=== PATIENT | female | born 1955 | race Caucasian/White ===

== ENCOUNTER 2018-02-10 04:39 | Inpatient (IN) | payer MEDICARE ==
[~2018-02-10] VITALS: Ht 162.6 cm; Wt 85.5 kg
[2018-02-10 13:17] VITALS: BP 133/75
[2018-02-10] MEDS ORDERED: METHYL SALICYLATE/MENTHOL TOPICAL OINTMENT 29GM TUBE. TP PRN (13:45)
[2018-02-10] MEDS ORDERED: MAGNESIUM HYDROXIDE 2,400 MG/30 ML ORAL.SUSP. PO PRN (13:45)
[2018-02-10] MEDS ORDERED: MAG HYDROX/AL HYDROX/SIMETH 30 ML ORAL.SUSP PO PRN (13:45)
[2018-02-10] MEDS ORDERED: CARV25TA2 PO (14:13)
[2018-02-10] MEDS ORDERED: NITR0.4T22 SL (14:13)
[2018-02-10] MEDS ORDERED: LEVE500T6 PO (14:13)
[2018-02-10] MEDS ORDERED: FAMO20TA5 PO (14:13)
[2018-02-10] MEDS ORDERED: ATORVASTATIN CA80 MG PO (14:13)
[2018-02-10] MEDS ORDERED: ZOLP5TAB PO (14:13)
[2018-02-10] MEDS ORDERED: AMLO10TA6 PO (14:13)
[2018-02-10] MEDS ORDERED: SENN1TAB72 PO (14:13)
[2018-02-10] MEDS ORDERED: ISOS60TA2 PO (14:13)
[2018-02-10] MEDS ORDERED: FURO20TA3 PO (14:13)
[2018-02-10] MEDS ORDERED: FLUO40CA9 PO (14:13)
[2018-02-10] MEDS ORDERED: EZET10TA18 PO (14:13)
[2018-02-10] MEDS ORDERED: MELA3TAB2 PO (14:13)
[2018-02-10] MEDS ORDERED: CLOP75TA PO (14:13)
[2018-02-10] MEDS ORDERED: PANT40TA5 PO (14:13)
[2018-02-10] MEDS ORDERED: ALPR1TAB6 PO (14:13)
[2018-02-10] MEDS ORDERED: RANO10002 PO (14:13)
[2018-02-10] MEDS ORDERED: DOCU100C28 PO (14:13)
[2018-02-10] MEDS ORDERED: ASPI-630 PO (14:13)
[2018-02-10] MEDS ORDERED: FURO40TA4 PO (14:13)
[2018-02-10] MEDS ORDERED: SENNOSIDES/DOCUSATE 8.6/50MG TABLET. PO PRN (14:30)
[2018-02-10] MEDS ORDERED: NITROGLYCERIN SUBLINGUAL 0.4 MG BOTTLE OF 25. SL PRN (14:30)
[2018-02-10 16:01] VITALS: BP 146/84
[2018-02-10] MEDS ORDERED: ALPRAZolam 0.5 MG TABLET PO PRN (16:55)
[2018-02-10] MEDS: CARVEDILOL 12.5 MG TABLET PO SCH (17:21)
[2018-02-10] MEDS ORDERED: NON FORMULARY ITEM (Melatonin 20 MG) PO SCH (21:00)
[2018-02-10] MEDS: RANOLAZINE 500 MG TAB.ER.12H PO SCH ×2 (21:00→21:16)
[2018-02-10] MEDS: levETIRAcetam 500 MG TABLET PO SCH (21:07)
[2018-02-10] MEDS: DOCUSATE SODIUM 100 MG CAPSULE PO SCH (21:07)
[2018-02-10] MEDS: ZOLPIDEM 5 MG TABLET. PO PRN (21:11)
--- NOTE | 2018-02-10 22:58 | PDOC ---
Exam Note: Allan Note: Please also refer to the separate dictated note~for this date of service dictated separately. Discussed the patient with Nursing staff reviewed the chart.~Reviewed interim history and current functioning. Reviewed vital signs,~ Labs/ Radiology~and current medications noted below. Continue current treatment with the changes noted in the dictated addendum note Assessment: Vital Signs: Vital Signs Date Time Temp Pulse Resp B/P (MAP) Pulse Ox O2 Delivery O2 Flow Rate FiO2 02/10/18 21:16 73 146/84 02/10/18 16:01 98.4 16 97 Room Air Labs: Laboratory Tests Test 02/10/18 13:55 Magnesium Level 2.2 mg/dL (1.8-2.4) Current Medications: Meds: Current Medications Acetaminophen (Tylenol) 650 mg PRN Q6HRS PRN PO PAIN / TEMP; Start 02/10/18 at 13:45 Multi-Ingredient Ointment (Analgesic [place]) 1 sha PRN QID PRN TP MUSCLE PAIN; Start 02/10/18 at 13:45 Al Hydroxide/Mg Hydroxide (Mylanta Plus Xs) 15 ml PRN AFTMEALHC PRN PO DYSPEPSIA; Start 02/10/18 at 13:45 Magnesium Hydroxide (Milk Of Magnesia) 2,400 mg PRN QHS PRN PO CONSTIPATION; Start 02/10/18 at 13:45 Clopidogrel Bisulfate (Plavix) 75 mg DAILY PO ; Start 02/11/18 at 09:00 Furosemide (Lasix) 20 mg PRN QEVNG PRN PO edema; Start 02/10/18 at 14:30 Nitroglycerin (Nitrostat) 0.4 mg PRN Q5MIN PRN SL CHEST PAIN; Start 02/10/18 at 14:30 Senna/Docusate Sodium (Senna Plus) 1 tab PRN DAILY PRN PO stool softener ; Start 02/10/18 at 14:30 Zolpidem Tartrate (Ambien) 5 mg PRN QHS PRN PO insomnia Last administered on at 21:11; Start 02/10/18 at 14:30 Alprazolam (Xanax) 1.5 mg PRN QHS PRN PO for sleep ; Start 02/10/18 at 14:30 Amlodipine Besylate (Norvasc) 10 mg DAILY PO ; Start 02/11/18 at 09:00 Aspirin (Children'S Aspirin) 81 mg DAILYWBKFT PO ; Start 02/11/18 at 08:00 Atorvastatin Calcium (Lipitor) 80 mg DAILY PO ; Start 02/11/18 at 09:00 Carvedilol (Coreg) 25 mg BIDWMEALS PO Last administered on 02/10/18at 17:21; Start 02/10/18 at 17:00 Docusate Sodium (Colace) 100 mg BID PO Last administered on 02/10/18at 21:07; Start 02/10/18 at 21:00 EZETIMIBE (Zetia) 10 mg DAILY PO ; Start 02/11/18 at 09:00 Famotidine (Pepcid) 20 mg DAILY PO ; Start 02/11/18 at 09:00 Fluoxetine HCl (PROzac) 40 mg DAILY PO ; Start 02/11/18 at 09:00; Stop 02/11/18 at 09:00; Status DC Furosemide (Lasix) 40 mg DAILY PO ; Start 02/11/18 at 09:00 Isosorbide Mononitrate (Imdur) 60 mg DAILY PO ; Start 02/11/18 at 09:00 Levetiracetam (Keppra) 500 mg BID PO Last administered on 02/10/18at 21:07; Start 02/10/18 at 21:00 Non-Formulary Medication (Melatonin ) 20 mg QHS PO ; Start 02/10/18 at 21:00; Stop 02/10/18 at 21:00; Status DC Pantoprazole Sodium (Protonix) 40 mg DAILYAC PO ; Start 02/11/18 at 07:30 Ranolazine (Ranexa) 1,000 mg BID PO Last administered on 02/10/18at 21:16; Start 02/10/18 at 21:00 Alprazolam (Xanax) 0.5 mg PRN Q2HR PRN PO ANXIETY / AGITATION Last administered on 02/10/18at 16:58; Start 02/10/18 at 16:55 Duloxetine HCl (Cymbalta) 30 mg DAILY PO ; Start 02/11/18 at 09:00 Trazodone HCl (Desyrel) 50 mg PRN QHS PRN PO insomnia ; Start 02/10/18 at 20:00 Active Scripts Active Reported Ambien (Zolpidem Tartrate) 5 Mg Tablet 5 Mg PO PRN QHS PRN Ranexa (Ranolazine) 1,000 Mg Tab.er.12h 1,000 Mg PO BID Pantoprazole Sodium 40 Mg Tablet.dr 40 Mg PO DAILY NITROGLYCERIN SubLingual (Nitroglycerin) 0.4 Mg Tab.subl 0.4 Mg SL PRN Q5MIN PRN Stool Softener Tablet (Sennosides/Docusate Sodium) 1 Each Tablet 1 Each PO PRN DAILY PRN Melatonin 3 Mg Tablet 20 Mg PO QHS Levetiracetam 500 Mg Tablet 500 Mg PO BID Isosorbide Mononitrate Er (Isosorbide Mononitrate) 60 Mg Tab.er.24h 60 Mg PO DAILY Furosemide 20 Mg Tablet 20 Mg PO PRN QEVNG PRN Furosemide 40 Mg Tablet 40 Mg PO DAILY Prozac (Fluoxetine Hcl) 40 Mg Capsule 40 Mg PO DAILY Famotidine 20 Mg Tablet 20 Mg PO DAILY Zetia (Ezetimibe) 10 Mg Tablet 10 Mg PO DAILY Docusate Sodium 100 Mg Capsule 100 Mg PO BID Clopidogrel (Clopidogrel Bisulfate) 75 Mg Tablet 75 Mg PO DAILY PRN Carvedilol 25 Mg Tablet 25 Mg PO BIDWMEALS Atorvastatin Calcium 80 Mg Tablet 80 Mg PO DAILY Aspirin 81 Mg Tab.chew 81 Mg PO DAILY Amlodipine Besylate 10 Mg Tablet 10 Mg PO DAILY Alprazolam 1 Mg Tablet 1.5 Mg PO PRN QHS PRN I have reviewed the current psychotropics carefully including drug interactions. Risk benefit ratio favors no change other than as noted in my dictated progress note. Diagnosis: Problems: (1) Altered mental status, unspecified MARIA ESTHER FREEDMAN MD Feb 10, 2018 22:58
[2018-02-10] MEDS: ALPRAZolam 0.5 MG TABLET PO PRN (23:06)
[2018-02-11 00:07] LABS: THYROXINE 10.3 ug/dL (4.5-12.0)
[2018-02-11 02:18] LABS: HEMOGLOBIN A1C 5.3 % (4.8-5.6)
[2018-02-11 05:38] VITALS: BP 144/64
[2018-02-11 07:07] LABS: BASO # 0.1 x10^3/uL (0.0-0.2); BASO % 1 % (0-3); EOS # 0.3 x10^3/uL (0.0-0.7); EOS % 5 % (0-3); HEMATOCRIT 31.9 % (36.0-47.0); HEMOGLOBIN 10.3 g/dL (12.0-15.5); LYMPH # 2.5 x10^3/uL (1.0-4.8); LYMPH % 40 % (24-48); MEAN CORPUSCULAR HEMOGLOBIN 26 pg (25-35); MEAN CORPUSCULAR HGB CONC 32 g/dL (31-37); MEAN CORPUSCULAR VOLUME 80 fL (79-100); MONO # 0.6 x10^3/uL (0.0-1.1); MONO % 10 % (0-9); NEUT # 2.8 x10^3uL (1.8-7.7); NEUT % 44 % (31-73); PLATELET COUNT 290 x10^3/uL (140-400); RED BLOOD COUNT 3.99 x10^6/uL (3.50-5.40); RED CELL DISTRIBUTION WIDTH 17.3 % (11.5-14.5); WHITE BLOOD COUNT 6.3 x10^3/uL (4.0-11.0)
[2018-02-11 07:14] LABS: ALBUMIN/GLOBULIN RATIO 0.9 (1.0-1.7); CALCIUM 8.6 mg/dL (8.5-10.1); CREATININE 1.2 mg/dL (0.6-1.0); GFR 45.1; POTASSIUM 3.9 mmol/L (3.5-5.1); TOTAL BILIRUBIN 0.4 mg/dL (0.2-1.0); TOTAL PROTEIN 6.4 g/dL (6.4-8.2)
[2018-02-11] MEDS ORDERED: FLUoxetine HCL 20 MG CAPSULE PO SCH (09:00)
[2018-02-11] MEDS: DOCUSATE SODIUM 100 MG CAPSULE PO SCH ×2 (09:07→19:25)
[2018-02-11] MEDS: levETIRAcetam 500 MG TABLET PO SCH ×2 (09:07→19:24)
[2018-02-11] MEDS: PANTOPRAZOLE 40 MG TABLET. PO SCH (09:14)
[2018-02-11] MEDS: ASPIRIN 81 MG TAB.CHEW PO SCH (09:14)
[2018-02-11] MEDS: DULoxetine HCL 30 MG CAPSULE.DR PO SCH (09:15)
[2018-02-11] MEDS: CARVEDILOL 12.5 MG TABLET PO SCH ×2 (09:15→17:08)
[2018-02-11] MEDS: CLOPIDOGREL BISULFATE 75 MG TABLET PO SCH (09:17)
[2018-02-11] MEDS: ISOSORBIDE MONONITRATE ER 30 MG TAB.ER.24H PO SCH (09:17)
[2018-02-11] MEDS: FAMOTIDINE 20 MG TABLET PO SCH (09:17)
[2018-02-11] MEDS: RANOLAZINE 500 MG TAB.ER.12H PO SCH ×2 (09:18→19:24)
[2018-02-11] MEDS: ATORVASTATIN CALCIUM 20 MG TABLET PO SCH (09:18)
[2018-02-11] MEDS: EZETIMIBE 10 MG TABLET PO SCH (09:18)
[2018-02-11] MEDS: FUROSEMIDE 40 MG TABLET PO SCH (09:18)
[2018-02-11] MEDS: amLODIPine BESYLATE 10 MG TABLET PO SCH (09:19)
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
[2018-02-11 16:51] VITALS: BP 126/79
--- NOTE | 2018-02-11 18:57 | CONS ---
DATE OF CONSULTATION: 02/11/2018 REASON FOR CONSULTATION: Medical management. HISTORY OF PRESENT ILLNESS: The patient is a 63-year-old female patient, who was [facility] Room where she presented from home on account of worsening symptoms of depression with suicidal ideation with a plan to take pills or use carbon monoxide poisoning to kill herself. The patient has been living at home, caring for her elderly mother, this has been increasingly frustrating for her worsening symptoms of depression. She was admitted to this unit for psychiatric stabilization. PAST MEDICAL HISTORY: Significant for numerous medical problems including congestive heart failure, coronary artery disease, peripheral artery disease, hypertension, diabetes, seizures, migraine, panic attack, CVA, chronic kidney disease, hyperlipidemia, and renal arterial atherosclerosis. PAST SURGICAL HISTORY: Significant for coronary artery bypass graft surgery as well as stent deployment. She has also right ankle fracture, status post open reduction and internal fixation. ALLERGIES: She has no known drug allergies. MEDICATIONS: She is currently on following medications: She is on Plavix 75 mg once a day, Ranexa 1000 mg twice a day, Zetia 10 mg once a day, atorvastatin calcium 80 mg at bedtime. She is on isosorbide mononitrate 60 mg once a day, nitroglycerin 0.4 mg sublingual every 5 minutes x 3, carvedilol 25 mg twice a day, amlodipine besylate 10 mg once a day, aspirin 81 mg once a day, Keppra 500 mg twice a day, fluoxetine for Prozac 40 mg daily, alprazolam 1.5 mg at bedtime and Ambien 5 mg at bedtime, furosemide 40 mg daily and furosemide 20 mg as needed in the evening for worsening edema, docusate sodium 100 mg twice a day, Senna-S 1 tablet daily p.r.n. for constipation, famotidine 20 mg once a day, Protonix 40 mg once a day, and melatonin 20 mg at bedtime. FAMILY HISTORY: Noncontributory. SOCIAL HISTORY: The patient lives at home, caring for mother. She does not smoke, drink alcohol or use recreational drugs. She is retired at age of 48 after she had sustained a cerebrovascular accident. PHYSICAL EXAMINATION: GENERAL: When I examined her, the patient looked well and was clearly in no apparent respiratory distress. Slightly pale, but no jaundice, cyanosis, or thyromegaly. No jugular venous distension. No limb edema. VITAL SIGNS: Her heart rate was 64, blood pressure was 144/64, temperature was 97.9, respiratory rate was 18 and oxygen saturation was 96% on room air. HEAD, EYES, EARS, NOSE AND THROAT: Showed normocephalic, atraumatic. NECK: Supple. HEART: Showed normal first and second heart sounds. No gallop, rub or murmur. CHEST: Clear to auscultation. No crepitation or rhonchi. ABDOMEN: Distended, soft, nontender. No guarding or rigidity. No organomegaly. Hernial orifice intact. Bowel sounds normal. NEUROLOGIC: She was awake, alert, responding appropriately. All cranial nerves intact. EXTREMITIES: She moves all extremities without difficulty. She ambulates without assistance or assistive devices. Her intake over the last 24 hours was incompletely recorded. LABORATORY DATA: Her lab work showed a serum sodium 141, potassium 3.9, chloride 104, bicarbonate 28, anion gap of 9, BUN 17, creatinine 1.2, estimated GFR was 45 mL per minute. Her glucose 96, calcium was 8.6. Her total bilirubin, AST, ALT, and alkaline phosphatase were normal. Total protein is 6.4, albumin 3. Her total T4 and total T3 are all normal. Her white cell count was 6300, hemoglobin 10, hematocrit 31, MCV 80 and platelet count 290,000. IMPRESSION: In summary, this is a 63-year-old female patient who was admitted with severe depression, suicidal ideation with a plan to take pills or use carbon monoxide to kill herself and she is here for inpatient psychiatric stabilization. Medically, she has a multitude of medical problems including type 2 diabetes, hypertension, hyperlipidemia, chronic kidney disease, cerebrovascular accident, coronary artery disease, peripheral arterial disease, congestive heart failure. Her vital signs and lab works are all within acceptable range. She is all in all medically stable. I will definitely continue with all her medications for the time being. I will follow all the lab works that are still pending and make any necessary recommendation. Thank you, Dr. Tejeda for allowing me to participate in the care of this patient. BRIANNA SILVER MD DR: CYNTHIA/amie JOB#: [id number] / [id number]
[2018-02-11] MEDS: ALPRAZolam 0.5 MG TABLET PO PRN (19:24)
[2018-02-11] MEDS: ZOLPIDEM 5 MG TABLET. PO PRN (19:24)
[2018-02-11 19:49] LABS: THYROID STIM HORMONE (TSH) 1.669 uIU/mL (0.358-3.740)
[2018-02-11] MEDS: traZODone 50 MG TABLET. PO PRN (21:36)
--- NOTE | 2018-02-11 22:42 | PDOC ---
Exam Note: Allan Note: Please also refer to the separate dictated note~for this date of service dictated separately.~Patient seen individually. Discussed the patient with Nursing staff reviewed the chart.~Reviewed interim history and current functioning. Reviewed vital signs,~Labs/ Radiology~and current medications noted below. Continue current treatment with the changes noted in the dictated addendum note Assessment: Vital Signs: Vital Signs Date Time Temp Pulse Resp B/P (MAP) Pulse Ox O2 Delivery O2 Flow Rate FiO2 02/11/18 19:24 80 126/79 02/11/18 16:51 98.5 17 96 02/10/18 16:01 Room Air I&O Intake and Output 02/11/18 07:01 Intake Total 360 ml Balance 360 ml Intake Oral 360 ml Labs: Laboratory Tests Test 02/11/18 06:40 02/11/18 07:17 White Blood Count 6.3 x10^3/uL (4.0-11.0) Red Blood Count 3.99 x10^6/uL (3.50-5.40) Hemoglobin 10.3 g/dL (12.0-15.5) L Hematocrit 31.9 % (36.0-47.0) L Mean Corpuscular Volume 80 fL (79-100) Mean Corpuscular Hemoglobin 26 pg (25-35) Mean Corpuscular Hemoglobin Concent 32 g/dL (31-37) Red Cell Distribution Width 17.3 % (11.5-14.5) H Platelet Count 290 x10^3/uL (140-400) Neutrophils (%) (Auto) 44 % (31-73) Lymphocytes (%) (Auto) 40 % (24-48) Monocytes (%) (Auto) 10 % (0-9) H Eosinophils (%) (Auto) 5 % (0-3) H Basophils (%) (Auto) 1 % (0-3) Neutrophils # (Auto) 2.8 x10^3uL (1.8-7.7) Lymphocytes # (Auto) 2.5 x10^3/uL (1.0-4.8) Monocytes # (Auto) 0.6 x10^3/uL (0.0-1.1) Eosinophils # (Auto) 0.3 x10^3/uL (0.0-0.7) Basophils # (Auto) 0.1 x10^3/uL (0.0-0.2) Sodium Level 141 mmol/L (136-145) Potassium Level 3.9 mmol/L (3.5-5.1) Chloride Level 104 mmol/L (98-107) Carbon Dioxide Level 28 mmol/L (21-32) Anion Gap 9 (6-14) Blood Urea Nitrogen 17 mg/dL (7-20) Creatinine 1.2 mg/dL (0.6-1.0) H Estimated GFR (Cockcroft-Gault) 45.1 BUN/Creatinine Ratio 14 (6-20) Glucose Level 96 mg/dL (70-99) Calcium Level 8.6 mg/dL (8.5-10.1) Total Bilirubin 0.4 mg/dL (0.2-1.0) Aspartate Amino Transferase (AST) 34 U/L (15-37) Alanine Aminotransferase (ALT) 40 U/L (14-59) Alkaline Phosphatase 109 U/L (46-116) Total Protein 6.4 g/dL (6.4-8.2) Albumin 3.0 g/dL (3.4-5.0) L Albumin/Globulin Ratio 0.9 (1.0-1.7) L Glucose (Fingerstick) 95 mg/dL (70-99) Current Medications: Meds: Current Medications Acetaminophen (Tylenol) 650 mg PRN Q6HRS PRN PO PAIN / TEMP; Start 02/10/18 at 13:45 Multi-Ingredient Ointment (Analgesic [place]) 1 sha PRN QID PRN TP MUSCLE PAIN; Start 02/10/18 at 13:45 Al Hydroxide/Mg Hydroxide (Mylanta Plus Xs) 15 ml PRN AFTMEALHC PRN PO DYSPEPSIA; Start 02/10/18 at 13:45 Magnesium Hydroxide (Milk Of Magnesia) 2,400 mg PRN QHS PRN PO CONSTIPATION; Start 02/10/18 at 13:45 Clopidogrel Bisulfate (Plavix) 75 mg DAILY PO Last administered on 02/11/18at 09: 17; Start 02/11/18 at 09:00 Furosemide (Lasix) 20 mg PRN QEVNG PRN PO edema; Start 02/10/18 at 14:30 Nitroglycerin (Nitrostat) 0.4 mg PRN Q5MIN PRN SL CHEST PAIN; Start 02/10/18 at 14:30 Senna/Docusate Sodium (Senna Plus) 1 tab PRN DAILY PRN PO stool softener ; Start 02/10/18 at 14:30 Zolpidem Tartrate (Ambien) 5 mg PRN QHS PRN PO insomnia Last administered on 19:24; Start 02/10/18 at 14:30 Alprazolam (Xanax) 1.5 mg PRN QHS PRN PO for sleep Last administered on 19:24; Start 02/10/18 at 14:30 Amlodipine Besylate (Norvasc) 10 mg DAILY PO Last administered on 02/11/18 09: 19; Start 02/11/18 at 09:00 Aspirin (Children'S Aspirin) 81 mg DAILYWBKFT PO Last administered on 02/11/18 09:14; Start 02/11/18 at 08:00 Atorvastatin Calcium (Lipitor) 80 mg DAILY PO Last administered on 02/11/18 09: 18; Start 02/11/18 at 09:00 Carvedilol (Coreg) 25 mg BIDWMEALS PO Last administered on 02/11/18 17:08; Start 02/10/18 at 17:00 Docusate Sodium (Colace) 100 mg BID PO Last administered on 02/11/18 19:25; Start 02/10/18 at 21:00 EZETIMIBE (Zetia) 10 mg DAILY PO Last administered on 02/11/18 09:18; Start 02/11/18 at 09:00 Famotidine (Pepcid) 20 mg DAILY PO Last administered on 02/11/18 09:17; Start 02/11/18 at 09:00 Fluoxetine HCl (PROzac) 40 mg DAILY PO ; Start 02/11/18 at 09:00; Stop 02/11/18 at 09:00; Status DC Furosemide (Lasix) 40 mg DAILY PO Last administered on 02/11/18 09:18; Start at 09:00 Isosorbide Mononitrate (Imdur) 60 mg DAILY PO Last administered on 02/11/18 09: 17; Start 02/11/18 at 09:00 Levetiracetam (Keppra) 500 mg BID PO Last administered on 02/11/18 19:24; Start 02/10/18 at 21:00 Non-Formulary Medication (Melatonin ) 20 mg QHS PO ; Start 02/10/18 at 21:00; Stop 02/10/18 at 21:00; Status DC Pantoprazole Sodium (Protonix) 40 mg DAILYAC PO Last administered on 02/11/18at 09:14; Start 02/11/18 at 07:30 Ranolazine (Ranexa) 1,000 mg BID PO Last administered on 02/11/18at 19:24; Start 02/10/18 at 21:00 Alprazolam (Xanax) 0.5 mg PRN Q2HR PRN PO ANXIETY / AGITATION Last administered on 02/10/18at 16:58; Start 02/10/18 at 16:55 Duloxetine HCl (Cymbalta) 30 mg DAILY PO Last administered on 02/11/18at 09:15; Start 02/11/18 at 09:00 Trazodone HCl (Desyrel) 50 mg PRN QHS PRN PO insomnia Last administered on 02/11at 21:36; Start 02/10/18 at 20:00 Active Scripts Active Reported Ambien (Zolpidem Tartrate) 5 Mg Tablet 5 Mg PO PRN QHS PRN Ranexa (Ranolazine) 1,000 Mg Tab.er.12h 1,000 Mg PO BID Pantoprazole Sodium 40 Mg Tablet.dr 40 Mg PO DAILY NITROGLYCERIN SubLingual (Nitroglycerin) 0.4 Mg Tab.subl 0.4 Mg SL PRN Q5MIN PRN Stool Softener Tablet (Sennosides/Docusate Sodium) 1 Each Tablet 1 Each PO PRN DAILY PRN Melatonin 3 Mg Tablet 20 Mg PO QHS Levetiracetam 500 Mg Tablet 500 Mg PO BID Isosorbide Mononitrate Er (Isosorbide Mononitrate) 60 Mg Tab.er.24h 60 Mg PO DAILY Furosemide 20 Mg Tablet 20 Mg PO PRN QEVNG PRN Furosemide 40 Mg Tablet 40 Mg PO DAILY Prozac (Fluoxetine Hcl) 40 Mg Capsule 40 Mg PO DAILY Famotidine 20 Mg Tablet 20 Mg PO DAILY Zetia (Ezetimibe) 10 Mg Tablet 10 Mg PO DAILY Docusate Sodium 100 Mg Capsule 100 Mg PO BID Clopidogrel (Clopidogrel Bisulfate) 75 Mg Tablet 75 Mg PO DAILY PRN Carvedilol 25 Mg Tablet 25 Mg PO BIDWMEALS Atorvastatin Calcium 80 Mg Tablet 80 Mg PO DAILY Aspirin 81 Mg Tab.chew 81 Mg PO DAILY Amlodipine Besylate 10 Mg Tablet 10 Mg PO DAILY Alprazolam 1 Mg Tablet 1.5 Mg PO PRN QHS PRN I have reviewed the current psychotropics carefully including drug interactions. Risk benefit ratio favors no change other than as noted in my dictated progress note. Diagnosis: Problems: (1) Altered mental status, unspecified MARIA ESTHER FREEDMAN MD Feb 11, 2018 22:42
[2018-02-12 05:43] VITALS: BP 101/60
[2018-02-12] MEDS: FUROSEMIDE 40 MG TABLET PO SCH (07:59)
[2018-02-12] MEDS: levETIRAcetam 500 MG TABLET PO SCH ×2 (08:00→19:37)
[2018-02-12] MEDS: ASPIRIN 81 MG TAB.CHEW PO SCH (08:00)
[2018-02-12] MEDS: ATORVASTATIN CALCIUM 20 MG TABLET PO SCH (08:00)
[2018-02-12] MEDS: EZETIMIBE 10 MG TABLET PO SCH (08:00)
[2018-02-12] MEDS: CARVEDILOL 12.5 MG TABLET PO SCH ×2 (08:00→17:16)
[2018-02-12] MEDS: CLOPIDOGREL BISULFATE 75 MG TABLET PO SCH (08:00)
[2018-02-12] MEDS: RANOLAZINE 500 MG TAB.ER.12H PO SCH ×2 (08:01→19:39)
[2018-02-12] MEDS: PANTOPRAZOLE 40 MG TABLET. PO SCH (08:01)
[2018-02-12] MEDS: FAMOTIDINE 20 MG TABLET PO SCH (08:01)
[2018-02-12] MEDS: DULoxetine HCL 30 MG CAPSULE.DR PO SCH (08:01)
[2018-02-12] MEDS: DOCUSATE SODIUM 100 MG CAPSULE PO SCH ×2 (08:01→19:37)
[2018-02-12] MEDS: ISOSORBIDE MONONITRATE ER 30 MG TAB.ER.24H PO SCH (08:02)
[2018-02-12] MEDS: amLODIPine BESYLATE 10 MG TABLET PO SCH (08:02)
[2018-02-12 16:17] VITALS: BP 133/61
[2018-02-12] MEDS ORDERED: FUROSEMIDE 20 MG TABLET PO PRN (18:15)
[2018-02-12] MEDS: FUROSEMIDE 20 MG TABLET PO PRN (18:31)
[2018-02-12] MEDS: ALPRAZolam 0.5 MG TABLET PO PRN (19:39)
[2018-02-12] MEDS: ZOLPIDEM 5 MG TABLET. PO PRN (19:39)
--- NOTE | 2018-02-12 21:04 | PDOC ---
Exam Note: Allan Note: Please also refer to the separate dictated note~for this date of service dictated separately.~Patient seen individually. Discussed the patient with Nursing staff reviewed the chart.~Reviewed interim history and current functioning. Reviewed vital signs,~Labs/ Radiology~and current medications noted below. Continue current treatment with the changes noted in the dictated addendum note Assessment: Vital Signs: Vital Signs Date Time Temp Pulse Resp B/P (MAP) Pulse Ox O2 Delivery O2 Flow Rate FiO2 02/12/18 19:39 71 133/61 02/12/18 16:17 97.6 18 97 Room Air I&O Intake and Output 02/12/18 07:01 Intake Total 1560 ml Balance 1560 ml Intake Oral 1560 ml Labs: Laboratory Tests Test 02/12/18 07:51 Glucose (Fingerstick) 88 mg/dL (70-99) Current Medications: Meds: Current Medications Acetaminophen (Tylenol) 650 mg PRN Q6HRS PRN PO PAIN / TEMP; Start 02/10/18 at 13:45 Multi-Ingredient Ointment (Analgesic [place]) 1 sha PRN QID PRN TP MUSCLE PAIN; Start 02/10/18 at 13:45 Al Hydroxide/Mg Hydroxide (Mylanta Plus Xs) 15 ml PRN AFTMEALHC PRN PO DYSPEPSIA; Start 02/10/18 at 13:45 Magnesium Hydroxide (Milk Of Magnesia) 2,400 mg PRN QHS PRN PO CONSTIPATION; Start 02/10/18 at 13:45 Clopidogrel Bisulfate (Plavix) 75 mg DAILY PO Last administered on 02/12/18at 08: 00; Start 02/11/18 at 09:00 Furosemide (Lasix) 20 mg PRN QEVNG PRN PO edema Last administered on 02/12/18at 18:31; Start 02/10/18 at 14:30 Nitroglycerin (Nitrostat) 0.4 mg PRN Q5MIN PRN SL CHEST PAIN; Start 02/10/18 at 14:30 Senna/Docusate Sodium (Senna Plus) 1 tab PRN DAILY PRN PO stool softener ; Start 02/10/18 at 14:30 Zolpidem Tartrate (Ambien) 5 mg PRN QHS PRN PO insomnia Last administered on at 19:39; Start 02/10/18 at 14:30 Alprazolam (Xanax) 1.5 mg PRN QHS PRN PO for sleep Last administered on 19:39; Start 02/10/18 at 14:30 Amlodipine Besylate (Norvasc) 10 mg DAILY PO Last administered on 02/11/18 09: 19; Start 02/11/18 at 09:00 Aspirin (Children'S Aspirin) 81 mg DAILYWBKFT PO Last administered on 02/12/18at 08:00; Start 02/11/18 at 08:00 Atorvastatin Calcium (Lipitor) 80 mg DAILY PO Last administered on 02/12/18 08: 00; Start 02/11/18 at 09:00 Carvedilol (Coreg) 25 mg BIDWMEALS PO Last administered on 02/12/18 17:16; Start 02/10/18 at 17:00 Docusate Sodium (Colace) 100 mg BID PO Last administered on 02/12/18 19:37; Start 02/10/18 at 21:00 EZETIMIBE (Zetia) 10 mg DAILY PO Last administered on 02/12/18at 08:00; Start 02/11/18 at 09:00 Famotidine (Pepcid) 20 mg DAILY PO Last administered on 02/12/18 08:01; Start 02/11/18 at 09:00 Fluoxetine HCl (PROzac) 40 mg DAILY PO ; Start 02/11/18 at 09:00; Stop 02/11/18 at 09:00; Status DC Furosemide (Lasix) 40 mg DAILY PO Last administered on 02/12/18at 07:59; Start at 09:00 Isosorbide Mononitrate (Imdur) 60 mg DAILY PO Last administered on 02/11/18 09: 17; Start 02/11/18 at 09:00 Levetiracetam (Keppra) 500 mg BID PO Last administered on 02/12/18 19:37; Start 02/10/18 at 21:00 Non-Formulary Medication (Melatonin ) 20 mg QHS PO ; Start 02/10/18 at 21:00; Stop 02/10/18 at 21:00; Status DC Pantoprazole Sodium (Protonix) 40 mg DAILYAC PO Last administered on 1/5/19at 08:01; Start 02/11/18 at 07:30 Ranolazine (Ranexa) 1,000 mg BID PO Last administered on 02/12/18at 19:39; Start 02/10/18 at 21:00 Alprazolam (Xanax) 0.5 mg PRN Q2HR PRN PO ANXIETY / AGITATION Last administered on 02/10/18at 16:58; Start 02/10/18 at 16:55 Duloxetine HCl (Cymbalta) 30 mg DAILY PO Last administered on 02/12/18at 08:01; Start 02/11/18 at 09:00 Trazodone HCl (Desyrel) 50 mg PRN QHS PRN PO insomnia Last administered on 02/11at 21:36; Start 02/10/18 at 20:00 Furosemide (Lasix) 20 mg PRN DAILY PRN PO WITH SUPPER FOR EDEMA; Start 02/12/18 at 18:15 Active Scripts Active Reported Ambien (Zolpidem Tartrate) 5 Mg Tablet 5 Mg PO PRN QHS PRN Ranexa (Ranolazine) 1,000 Mg Tab.er.12h 1,000 Mg PO BID Pantoprazole Sodium 40 Mg Tablet.dr 40 Mg PO DAILY NITROGLYCERIN SubLingual (Nitroglycerin) 0.4 Mg Tab.subl 0.4 Mg SL PRN Q5MIN PRN Stool Softener Tablet (Sennosides/Docusate Sodium) 1 Each Tablet 1 Each PO PRN DAILY PRN Melatonin 3 Mg Tablet 20 Mg PO QHS Levetiracetam 500 Mg Tablet 500 Mg PO BID Isosorbide Mononitrate Er (Isosorbide Mononitrate) 60 Mg Tab.er.24h 60 Mg PO DAILY Furosemide 20 Mg Tablet 20 Mg PO PRN QEVNG PRN Furosemide 40 Mg Tablet 40 Mg PO DAILY Prozac (Fluoxetine Hcl) 40 Mg Capsule 40 Mg PO DAILY Famotidine 20 Mg Tablet 20 Mg PO DAILY Zetia (Ezetimibe) 10 Mg Tablet 10 Mg PO DAILY Docusate Sodium 100 Mg Capsule 100 Mg PO BID Clopidogrel (Clopidogrel Bisulfate) 75 Mg Tablet 75 Mg PO DAILY PRN Carvedilol 25 Mg Tablet 25 Mg PO BIDWMEALS Atorvastatin Calcium 80 Mg Tablet 80 Mg PO DAILY Aspirin 81 Mg Tab.chew 81 Mg PO DAILY Amlodipine Besylate 10 Mg Tablet 10 Mg PO DAILY Alprazolam 1 Mg Tablet 1.5 Mg PO PRN QHS PRN I have reviewed the current psychotropics carefully including drug interactions. Risk benefit ratio favors no change other than as noted in my dictated progress note. Diagnosis: Problems: (1) Altered mental status, unspecified (2) Major depressive disorder, recurrent episode (3) Anxiety disorder MARIA ESTHER FREEDMAN MD Feb 12, 2018 21:04
[2018-02-12] MEDS: traZODone 50 MG TABLET. PO PRN (21:42)
--- NOTE | 2018-02-12 21:58 | PN ---
DATE: 02/12/2018 This note covers elements not covered in my initial note of 02/12/2018. SUBJECTIVE: I met with the patient at some length in the evening of 02/12/2018 in her room. I sat with her on her bed. Per nursing report, she has been doing better, less anxious, compliant with treatment and it was a better day. She has been interacting appropriately with her roommate, which was initially a concern of hers. She slept 7-3/4 hours previous night. Complains of some swelling of her ankles and she states at home she keeps her legs elevated. We discussed ENRIKE hose or tight stockings. REVIEW OF SYSTEMS: No CV, , pulmonary, eye system symptoms on review. MENTAL STATUS EXAM: Reasonably oriented. Speech is coherent, abstraction fair, computation reasonable, language function intact. Attention span short. No suicidal ideation. Mood and affect still somewhat dysphoric, anxious, but showing improvement. She denies any side effects from the Cymbalta. LABORATORY DATA: Reviewed. IMPRESSION: Major depressive disorder, recurrent; anxiety disorder, unspecified. PLAN: We will go ahead and increase Cymbalta from 30 mg a day to 60 mg a day on 02/13/2018. Rest unchanged from initial note. We also discussed having a schedule day off that her younger sister could not care for the mother and different activities she can do as part of this. MARIA ESTHER FREEDMAN MD DR: PHILIPPE/amie JOB#: [id number] / [id number]
[2018-02-13 06:03] VITALS: BP 126/67
[2018-02-13] MEDS: CLOPIDOGREL BISULFATE 75 MG TABLET PO SCH (07:52)
[2018-02-13] MEDS: PANTOPRAZOLE 40 MG TABLET. PO SCH (07:52)
[2018-02-13] MEDS: FAMOTIDINE 20 MG TABLET PO SCH (07:52)
[2018-02-13] MEDS: levETIRAcetam 500 MG TABLET PO SCH ×2 (07:52→21:17)
[2018-02-13] MEDS: ISOSORBIDE MONONITRATE ER 30 MG TAB.ER.24H PO SCH (07:53)
[2018-02-13] MEDS: RANOLAZINE 500 MG TAB.ER.12H PO SCH ×2 (07:53→21:17)
[2018-02-13] MEDS: ATORVASTATIN CALCIUM 20 MG TABLET PO SCH (07:53)
[2018-02-13] MEDS: EZETIMIBE 10 MG TABLET PO SCH (07:54)
[2018-02-13] MEDS: CARVEDILOL 12.5 MG TABLET PO SCH ×2 (07:54→16:56)
[2018-02-13] MEDS: FUROSEMIDE 40 MG TABLET PO SCH (07:54)
[2018-02-13] MEDS: ASPIRIN 81 MG TAB.CHEW PO SCH (07:54)
[2018-02-13] MEDS: DOCUSATE SODIUM 100 MG CAPSULE PO SCH ×2 (07:55→21:17)
[2018-02-13] MEDS: amLODIPine BESYLATE 10 MG TABLET PO SCH (07:55)
[2018-02-13] MEDS: DULoxetine HCL 60 MG CAPSULE.DR PO SCH (07:56)
--- NOTE | 2018-02-13 10:20 | PN ---
DATE: 02/11/2018 PSYCHIATRIC PROGRESS NOTE This late entry 02/11/2018 covers elements not covered in my initial note. SUBJECTIVE: I met with the patient in the evening at some length in her room. Overall, the patient states she is doing a little better. She said she has been smiling somewhat. She is still anxious, depressed, takes her medications whole. Denies active suicidal ideation, slept 5-3/4 hours previous night, somewhat restless at night. REVIEW OF SYSTEMS: No CV, , pulmonary, eye, ENT system symptoms on review. MENTAL STATUS EXAM: Oriented reasonably. Speech is coherent, abstraction fair, computation impaired, language function intact, attention span short. Mood and affect showing some improvement. No active suicidal ideation. LABORATORY DATA: Reviewed. IMPRESSION: Major depressive disorder with psychotic features; anxiety disorder, unspecified. PLAN: Continue psychotropics from initial note, increase Cymbalta from 30 mg a day to 60 mg a day after she has been on the 30 for 3 days. Continue rest unchanged. MARIA ESTHER FREEDMAN MD DR: PHILIPPE/amie JOB#: [id number] / [id number]
[2018-02-13 16:07] VITALS: BP 110/68
[2018-02-13] MEDS: FUROSEMIDE 20 MG TABLET PO PRN (18:39)
[2018-02-13] MEDS ORDERED: ALPRAZolam 0.5 MG TABLET PO PRN (19:30)
[2018-02-13] MEDS: traZODone 50 MG TABLET. PO PRN ×2 (21:58→23:53)
--- NOTE | 2018-02-13 22:43 | PDOC ---
Exam Note: Allan Note: Please also refer to the separate dictated note~for this date of service dictated separately.~Patient seen individually. Discussed the patient with Nursing staff reviewed the chart.~Reviewed interim history and current functioning. Reviewed vital signs,~Labs/ Radiology~and current medications noted below. Continue current treatment with the changes noted in the dictated addendum note Assessment: Vital Signs: Vital Signs Date Time Temp Pulse Resp B/P (MAP) Pulse Ox O2 Delivery O2 Flow Rate FiO2 02/13/18 21:17 72 110/68 02/13/18 16:07 98.0 18 97 02/13/18 06:03 Room Air I&O Intake and Output 02/13/18 07:01 Intake Total 720 ml Balance 720 ml Intake Oral 720 ml Labs: Laboratory Tests Test 02/13/18 07:54 Glucose (Fingerstick) 82 mg/dL (70-99) Current Medications: Meds: Current Medications Acetaminophen (Tylenol) 650 mg PRN Q6HRS PRN PO PAIN / TEMP; Start 02/10/18 at 13:45 Multi-Ingredient Ointment (Analgesic [place]) 1 sha PRN QID PRN TP MUSCLE PAIN; Start 02/10/18 at 13:45 Al Hydroxide/Mg Hydroxide (Mylanta Plus Xs) 15 ml PRN AFTMEALHC PRN PO DYSPEPSIA; Start 02/10/18 at 13:45 Magnesium Hydroxide (Milk Of Magnesia) 2,400 mg PRN QHS PRN PO CONSTIPATION; Start 02/10/18 at 13:45 Clopidogrel Bisulfate (Plavix) 75 mg DAILY PO Last administered on 02/13/18at 07: 52; Start 02/11/18 at 09:00 Furosemide (Lasix) 20 mg PRN QEVNG PRN PO edema Last administered on 02/13/18at 18:39; Start 02/10/18 at 14:30 Nitroglycerin (Nitrostat) 0.4 mg PRN Q5MIN PRN SL CHEST PAIN; Start 02/10/18 at 14:30 Senna/Docusate Sodium (Senna Plus) 1 tab PRN DAILY PRN PO stool softener ; Start 02/10/18 at 14:30 Zolpidem Tartrate (Ambien) 5 mg PRN QHS PRN PO insomnia Last administered on at 19:39; Start 02/10/18 at 14:30; Stop 02/13/18 at 19:23; Status DC Alprazolam (Xanax) 1.5 mg PRN QHS PRN PO for sleep Last administered on 19:39; Start 02/10/18 at 14:30; Stop 02/13/18 at 19:23; Status DC Amlodipine Besylate (Norvasc) 10 mg DAILY PO Last administered on 02/13/18 07: 55; Start 02/11/18 at 09:00 Aspirin (Children'S Aspirin) 81 mg DAILYWBKFT PO Last administered on 02/13/18 07:54; Start 02/11/18 at 08:00 Atorvastatin Calcium (Lipitor) 80 mg DAILY PO Last administered on 02/13/18 07: 53; Start 02/11/18 at 09:00 Carvedilol (Coreg) 25 mg BIDWMEALS PO Last administered on 02/13/18 16:56; Start 02/10/18 at 17:00 Docusate Sodium (Colace) 100 mg BID PO Last administered on 02/13/18 21:17; Start 02/10/18 at 21:00 EZETIMIBE (Zetia) 10 mg DAILY PO Last administered on 02/13/18 07:54; Start 02/11/18 at 09:00 Famotidine (Pepcid) 20 mg DAILY PO Last administered on 02/13/18at 07:52; Start 02/11/18 at 09:00 Fluoxetine HCl (PROzac) 40 mg DAILY PO ; Start 02/11/18 at 09:00; Stop 02/11/18 at 09:00; Status DC Furosemide (Lasix) 40 mg DAILY PO Last administered on 02/13/18 07:54; Start at 09:00 Isosorbide Mononitrate (Imdur) 60 mg DAILY PO Last administered on 02/13/18 07: 53; Start 02/11/18 at 09:00 Levetiracetam (Keppra) 500 mg BID PO Last administered on 02/13/18 21:17; Start 02/10/18 at 21:00 Non-Formulary Medication (Melatonin ) 20 mg QHS PO ; Start 02/10/18 at 21:00; Stop 02/10/18 at 21:00; Status DC Pantoprazole Sodium (Protonix) 40 mg DAILYAC PO Last administered on 02/13/18at 07:52; Start 02/11/18 at 07:30 Ranolazine (Ranexa) 1,000 mg BID PO Last administered on 02/13/18at 21:17; Start 02/10/18 at 21:00 Alprazolam (Xanax) 0.5 mg PRN Q2HR PRN PO ANXIETY / AGITATION Last administered on 02/10/18at 16:58; Start 02/10/18 at 16:55; Stop 02/13/18 at 19:23; Status DC Duloxetine HCl (Cymbalta) 30 mg DAILY PO Last administered on 02/12/18at 08:01; Start 02/11/18 at 09:00; Stop 02/12/18 at 23:35; Status DC Trazodone HCl (Desyrel) 50 mg PRN QHS PRN PO insomnia Last administered on 02/13at 21:58; Start 02/10/18 at 20:00 Furosemide (Lasix) 20 mg PRN DAILY PRN PO WITH SUPPER FOR EDEMA; Start 02/12/18 at 18:15 Duloxetine HCl (Cymbalta) 60 mg DAILY PO Last administered on 02/13/18at 07:56; Start 02/13/18 at 09:00 Alprazolam (Xanax) 1.5 mg TID PRN PO for sleep ; Start 02/13/18 at 19:30 Active Scripts Active Reported Ambien (Zolpidem Tartrate) 5 Mg Tablet 5 Mg PO PRN QHS PRN Ranexa (Ranolazine) 1,000 Mg Tab.er.12h 1,000 Mg PO BID Pantoprazole Sodium 40 Mg Tablet.dr 40 Mg PO DAILY NITROGLYCERIN SubLingual (Nitroglycerin) 0.4 Mg Tab.subl 0.4 Mg SL PRN Q5MIN PRN Stool Softener Tablet (Sennosides/Docusate Sodium) 1 Each Tablet 1 Each PO PRN DAILY PRN Melatonin 3 Mg Tablet 20 Mg PO QHS Levetiracetam 500 Mg Tablet 500 Mg PO BID Isosorbide Mononitrate Er (Isosorbide Mononitrate) 60 Mg Tab.er.24h 60 Mg PO DAILY Furosemide 20 Mg Tablet 20 Mg PO PRN QEVNG PRN Furosemide 40 Mg Tablet 40 Mg PO DAILY Prozac (Fluoxetine Hcl) 40 Mg Capsule 40 Mg PO DAILY Famotidine 20 Mg Tablet 20 Mg PO DAILY Zetia (Ezetimibe) 10 Mg Tablet 10 Mg PO DAILY Docusate Sodium 100 Mg Capsule 100 Mg PO BID Clopidogrel (Clopidogrel Bisulfate) 75 Mg Tablet 75 Mg PO DAILY PRN Carvedilol 25 Mg Tablet 25 Mg PO BIDWMEALS Atorvastatin Calcium 80 Mg Tablet 80 Mg PO DAILY Aspirin 81 Mg Tab.chew 81 Mg PO DAILY Amlodipine Besylate 10 Mg Tablet 10 Mg PO DAILY Alprazolam 1 Mg Tablet 1.5 Mg PO PRN QHS PRN I have reviewed the current psychotropics carefully including drug interactions. Risk benefit ratio favors no change other than as noted in my dictated progress note. Diagnosis: Problems: (1) Altered mental status, unspecified (2) Major depressive disorder, recurrent episode (3) Anxiety disorder MARIA ESTHER FREEDMAN MD Feb 13, 2018 22:43
[2018-02-14 05:42] VITALS: BP 102/54
[2018-02-14] MEDS: DOCUSATE SODIUM 100 MG CAPSULE PO SCH ×2 (07:26→20:15)
[2018-02-14] MEDS: CLOPIDOGREL BISULFATE 75 MG TABLET PO SCH (07:26)
[2018-02-14] MEDS: ATORVASTATIN CALCIUM 20 MG TABLET PO SCH (07:27)
[2018-02-14] MEDS: DULoxetine HCL 60 MG CAPSULE.DR PO SCH (07:27)
[2018-02-14] MEDS: EZETIMIBE 10 MG TABLET PO SCH (07:27)
[2018-02-14] MEDS: FUROSEMIDE 40 MG TABLET PO SCH (07:27)
[2018-02-14] MEDS: ASPIRIN 81 MG TAB.CHEW PO SCH (07:28)
[2018-02-14] MEDS: levETIRAcetam 500 MG TABLET PO SCH ×2 (07:28→20:16)
[2018-02-14] MEDS: PANTOPRAZOLE 40 MG TABLET. PO SCH (07:28)
[2018-02-14] MEDS: FAMOTIDINE 20 MG TABLET PO SCH (07:28)
[2018-02-14] MEDS: RANOLAZINE 500 MG TAB.ER.12H PO SCH ×2 (08:23→20:15)
[2018-02-14] MEDS: CARVEDILOL 12.5 MG TABLET PO SCH ×2 (08:24→16:41)
[2018-02-14] MEDS: ISOSORBIDE MONONITRATE ER 30 MG TAB.ER.24H PO SCH (08:26)
[2018-02-14] MEDS: amLODIPine BESYLATE 10 MG TABLET PO SCH (08:27)
[2018-02-14 16:06] VITALS: BP 110/64
[2018-02-14] MEDS: ACETAMINOPHEN 325 MG TABLET PO PRN (16:08)
[2018-02-14] MEDS: ALPRAZolam 0.5 MG TABLET PO PRN (16:08)
[2018-02-14] MEDS: traZODone 50 MG TABLET. PO PRN (20:15)
--- NOTE | 2018-02-14 22:37 | PDOC ---
Exam Note: Allan Note: Please also refer to the separate dictated note~for this date of service dictated separately.~Patient seen individually. Discussed the patient with Nursing staff reviewed the chart.~Reviewed interim history and current functioning. Reviewed vital signs,~Labs/ Radiology~and current medications noted below. Continue current treatment with the changes noted in the dictated addendum note Assessment: Vital Signs: Vital Signs Date Time Temp Pulse Resp B/P (MAP) Pulse Ox O2 Delivery O2 Flow Rate FiO2 02/14/18 20:15 69 110/64 02/14/18 16:06 98.5 18 95 02/13/18 06:03 Room Air I&O Intake and Output 02/14/18 07:01 Intake Total 960 ml Balance 960 ml Intake Oral 960 ml Labs: Laboratory Tests Test 02/14/18 07:29 Glucose (Fingerstick) 110 mg/dL (70-99) H Current Medications: Meds: Current Medications Acetaminophen (Tylenol) 650 mg PRN Q6HRS PRN PO PAIN / TEMP Last administered on 02/14/18at 16:08; Start 02/10/18 at 13:45 Multi-Ingredient Ointment (Analgesic [place]) 1 sha PRN QID PRN TP MUSCLE PAIN; Start 02/10/18 at 13:45 Al Hydroxide/Mg Hydroxide (Mylanta Plus Xs) 15 ml PRN AFTMEALHC PRN PO DYSPEPSIA; Start 02/10/18 at 13:45 Magnesium Hydroxide (Milk Of Magnesia) 2,400 mg PRN QHS PRN PO CONSTIPATION; Start 02/10/18 at 13:45 Clopidogrel Bisulfate (Plavix) 75 mg DAILY PO Last administered on 02/14/18at 07: 26; Start 02/11/18 at 09:00 Furosemide (Lasix) 20 mg PRN QEVNG PRN PO edema Last administered on 02/13/18at 18:39; Start 02/10/18 at 14:30 Nitroglycerin (Nitrostat) 0.4 mg PRN Q5MIN PRN SL CHEST PAIN; Start 02/10/18 at 14:30 Senna/Docusate Sodium (Senna Plus) 1 tab PRN DAILY PRN PO stool softener ; Start 02/10/18 at 14:30 Zolpidem Tartrate (Ambien) 5 mg PRN QHS PRN PO insomnia Last administered on 19:39; Start 02/10/18 at 14:30; Stop 02/13/18 at 19:23; Status DC Alprazolam (Xanax) 1.5 mg PRN QHS PRN PO for sleep Last administered on 19:39; Start 02/10/18 at 14:30; Stop 02/13/18 at 19:23; Status DC Amlodipine Besylate (Norvasc) 10 mg DAILY PO Last administered on 02/14/18 08: 27; Start 02/11/18 at 09:00 Aspirin (Children'S Aspirin) 81 mg DAILYWBKFT PO Last administered on 02/14/18 07:28; Start 02/11/18 at 08:00 Atorvastatin Calcium (Lipitor) 80 mg DAILY PO Last administered on 02/14/18 07: 27; Start 02/11/18 at 09:00 Carvedilol (Coreg) 25 mg BIDWMEALS PO Last administered on 02/14/18 16:41; Start 02/10/18 at 17:00 Docusate Sodium (Colace) 100 mg BID PO Last administered on 02/14/18 20:15; Start 02/10/18 at 21:00 EZETIMIBE (Zetia) 10 mg DAILY PO Last administered on 02/14/18 07:27; Start 02/11/18 at 09:00 Famotidine (Pepcid) 20 mg DAILY PO Last administered on 02/14/18 07:28; Start 02/11/18 at 09:00 Fluoxetine HCl (PROzac) 40 mg DAILY PO ; Start 02/11/18 at 09:00; Stop 02/11/18 at 09:00; Status DC Furosemide (Lasix) 40 mg DAILY PO Last administered on 02/14/18 07:27; Start at 09:00 Isosorbide Mononitrate (Imdur) 60 mg DAILY PO Last administered on 02/14/18 08: 26; Start 02/11/18 at 09:00 Levetiracetam (Keppra) 500 mg BID PO Last administered on 02/14/18 20:16; Start 02/10/18 at 21:00 Non-Formulary Medication (Melatonin ) 20 mg QHS PO ; Start 02/10/18 at 21:00; Stop 02/10/18 at 21:00; Status DC Pantoprazole Sodium (Protonix) 40 mg DAILYAC PO Last administered on 02/14/18at 07:28; Start 02/11/18 at 07:30 Ranolazine (Ranexa) 1,000 mg BID PO Last administered on 02/14/18at 20:15; Start 02/10/18 at 21:00 Alprazolam (Xanax) 0.5 mg PRN Q2HR PRN PO ANXIETY / AGITATION Last administered on 02/10/18at 16:58; Start 02/10/18 at 16:55; Stop 02/13/18 at 19:23; Status DC Duloxetine HCl (Cymbalta) 30 mg DAILY PO Last administered on 02/12/18at 08:01; Start 02/11/18 at 09:00; Stop 02/12/18 at 23:35; Status DC Trazodone HCl (Desyrel) 50 mg PRN QHS PRN PO insomnia Last administered on 02/14at 20:15; Start 02/10/18 at 20:00 Furosemide (Lasix) 20 mg PRN DAILY PRN PO WITH SUPPER FOR EDEMA; Start 02/12/18 at 18:15 Duloxetine HCl (Cymbalta) 60 mg DAILY PO Last administered on 02/14/18at 07:27; Start 02/13/18 at 09:00 Alprazolam (Xanax) 1.5 mg TID PRN PO for sleep ; Start 02/13/18 at 19:30; Stop 02/14/18 at 03:13; Status DC Alprazolam (Xanax) 0.5 mg PRN TID PRN PO ANXIETY / AGITATION Last administered on 02/14/18at 16:08; Start 02/14/18 at 03:15 Active Scripts Active Reported Ambien (Zolpidem Tartrate) 5 Mg Tablet 5 Mg PO PRN QHS PRN Ranexa (Ranolazine) 1,000 Mg Tab.er.12h 1,000 Mg PO BID Pantoprazole Sodium 40 Mg Tablet.dr 40 Mg PO DAILY NITROGLYCERIN SubLingual (Nitroglycerin) 0.4 Mg Tab.subl 0.4 Mg SL PRN Q5MIN PRN Stool Softener Tablet (Sennosides/Docusate Sodium) 1 Each Tablet 1 Each PO PRN DAILY PRN Melatonin 3 Mg Tablet 20 Mg PO QHS Levetiracetam 500 Mg Tablet 500 Mg PO BID Isosorbide Mononitrate Er (Isosorbide Mononitrate) 60 Mg Tab.er.24h 60 Mg PO DAILY Furosemide 20 Mg Tablet 20 Mg PO PRN QEVNG PRN Furosemide 40 Mg Tablet 40 Mg PO DAILY Prozac (Fluoxetine Hcl) 40 Mg Capsule 40 Mg PO DAILY Famotidine 20 Mg Tablet 20 Mg PO DAILY Zetia (Ezetimibe) 10 Mg Tablet 10 Mg PO DAILY Docusate Sodium 100 Mg Capsule 100 Mg PO BID Clopidogrel (Clopidogrel Bisulfate) 75 Mg Tablet 75 Mg PO DAILY PRN Carvedilol 25 Mg Tablet 25 Mg PO BIDWMEALS Atorvastatin Calcium 80 Mg Tablet 80 Mg PO DAILY Aspirin 81 Mg Tab.chew 81 Mg PO DAILY Amlodipine Besylate 10 Mg Tablet 10 Mg PO DAILY Alprazolam 1 Mg Tablet 1.5 Mg PO PRN QHS PRN I have reviewed the current psychotropics carefully including drug interactions. Risk benefit ratio favors no change other than as noted in my dictated progress note. Diagnosis: Problems: (1) Altered mental status, unspecified (2) Major depressive disorder, recurrent episode (3) Anxiety disorder MARIA ESTHER FREEDMAN MD Feb 14, 2018 22:37
--- NOTE | 2018-02-14 23:42 | PN ---
DATE: 02/13/2018 PSYCHIATRIC PROGRESS NOTE This late entry 02/13/2018 covers elements, not covered in my initial note. SUBJECTIVE: I met with the patient in the evening. The patient slept 7-1/2 hours previous night. I met with her in her room at some length. She states her mood is better. She is wanting to get off the Ambien and we will stop this and she wants to change the 1.5 mg Xanax at night to 0.5 mg t.i.d. p.r.n. anxiety, which seems appropriate. REVIEW OF SYSTEMS: Positive for some pedal edema. No CV, , pulmonary, eye, ENT system symptoms on review. MENTAL STATUS EXAM: Oriented reasonably. Speech is coherent, abstraction fair, computation impaired, language function intact. Mood and affect still depressed, anxious, but improved. No suicidal ideation. LABORATORY DATA: Reviewed. IMPRESSION: Major depressive disorder in partial remission; anxiety disorder, unspecified. Rest unchanged. PLAN: Change as noted above. Rest unchanged from initial note. MARIA ESTHER FREEDMAN MD DR: PHILIPPE/amie JOB#: [id number] / [id number]
[2018-02-15] MEDS: traZODone 50 MG TABLET. PO PRN ×2 (00:54→20:04)
[2018-02-15 05:37] VITALS: BP 118/60
[2018-02-15] MEDS: levETIRAcetam 500 MG TABLET PO SCH ×2 (08:05→19:56)
[2018-02-15] MEDS: EZETIMIBE 10 MG TABLET PO SCH (08:05)
[2018-02-15] MEDS: ISOSORBIDE MONONITRATE ER 30 MG TAB.ER.24H PO SCH (08:05)
[2018-02-15] MEDS: FUROSEMIDE 40 MG TABLET PO SCH (08:05)
[2018-02-15] MEDS: ATORVASTATIN CALCIUM 20 MG TABLET PO SCH (08:05)
[2018-02-15] MEDS: amLODIPine BESYLATE 10 MG TABLET PO SCH (08:06)
[2018-02-15] MEDS: FAMOTIDINE 20 MG TABLET PO SCH (08:06)
[2018-02-15] MEDS: ASPIRIN 81 MG TAB.CHEW PO SCH (08:06)
[2018-02-15] MEDS: PANTOPRAZOLE 40 MG TABLET. PO SCH (08:06)
[2018-02-15] MEDS: DULoxetine HCL 60 MG CAPSULE.DR PO SCH (08:06)
[2018-02-15] MEDS: CLOPIDOGREL BISULFATE 75 MG TABLET PO SCH (08:06)
[2018-02-15] MEDS: CARVEDILOL 12.5 MG TABLET PO SCH ×2 (08:07→16:05)
[2018-02-15] MEDS: DOCUSATE SODIUM 100 MG CAPSULE PO SCH ×2 (08:07→19:56)
[2018-02-15] MEDS: RANOLAZINE 500 MG TAB.ER.12H PO SCH ×2 (08:12→19:59)
[2018-02-15] MEDS: ACETAMINOPHEN 325 MG TABLET PO PRN (13:19)
[2018-02-15] MEDS: ALPRAZolam 0.5 MG TABLET PO PRN (13:19)
[2018-02-15 15:47] VITALS: BP 110/70
[2018-02-15] MEDS ORDERED: CHOLECALCIFEROL (VITAMIN D3) 50,000 UNIT CAPSULE PO SCH (17:00)
[2018-02-15] MEDS: MIRTAZAPINE 7.5 MG TABLET. PO SCH (19:56)
--- NOTE | 2018-02-15 22:57 | PDOC ---
Exam Note: Allan Note: Please also refer to the separate dictated note~for this date of service dictated separately.~Patient seen individually. Discussed the patient with Nursing staff reviewed the chart.~Reviewed interim history and current functioning. Reviewed vital signs,~Labs/ Radiology~and current medications noted below. Continue current treatment with the changes noted in the dictated addendum note Assessment: Vital Signs: Vital Signs Date Time Temp Pulse Resp B/P (MAP) Pulse Ox O2 Delivery O2 Flow Rate FiO2 02/15/18 19:59 74 110/70 02/15/18 15:47 97.6 16 96 02/13/18 06:03 Room Air I&O Intake and Output 02/15/18 07:01 Intake Total 1080 ml Balance 1080 ml Intake Oral 1080 ml Labs: Laboratory Tests Test 02/15/18 07:37 Glucose (Fingerstick) 91 mg/dL (70-99) Current Medications: Meds: Current Medications Acetaminophen (Tylenol) 650 mg PRN Q6HRS PRN PO PAIN / TEMP Last administered on 02/15/18at 13:19; Start 02/10/18 at 13:45 Multi-Ingredient Ointment (Analgesic [place]) 1 sha PRN QID PRN TP MUSCLE PAIN; Start 02/10/18 at 13:45 Al Hydroxide/Mg Hydroxide (Mylanta Plus Xs) 15 ml PRN AFTMEALHC PRN PO DYSPEPSIA; Start 02/10/18 at 13:45 Magnesium Hydroxide (Milk Of Magnesia) 2,400 mg PRN QHS PRN PO CONSTIPATION; Start 02/10/18 at 13:45 Clopidogrel Bisulfate (Plavix) 75 mg DAILY PO Last administered on 02/15/18at 08: 06; Start 02/11/18 at 09:00 Furosemide (Lasix) 20 mg PRN QEVNG PRN PO edema Last administered on 02/13/18at 18:39; Start 02/10/18 at 14:30 Nitroglycerin (Nitrostat) 0.4 mg PRN Q5MIN PRN SL CHEST PAIN; Start 02/10/18 at 14:30 Senna/Docusate Sodium (Senna Plus) 1 tab PRN DAILY PRN PO stool softener ; Start 02/10/18 at 14:30 Zolpidem Tartrate (Ambien) 5 mg PRN QHS PRN PO insomnia Last administered on 19:39; Start 02/10/18 at 14:30; Stop 02/13/18 at 19:23; Status DC Alprazolam (Xanax) 1.5 mg PRN QHS PRN PO for sleep Last administered on 19:39; Start 02/10/18 at 14:30; Stop 02/13/18 at 19:23; Status DC Amlodipine Besylate (Norvasc) 10 mg DAILY PO Last administered on 02/15/18 08: 06; Start 02/11/18 at 09:00 Aspirin (Children'S Aspirin) 81 mg DAILYWBKFT PO Last administered on 02/15/18 08:06; Start 02/11/18 at 08:00 Atorvastatin Calcium (Lipitor) 80 mg DAILY PO Last administered on 02/15/18 08: 05; Start 02/11/18 at 09:00 Carvedilol (Coreg) 25 mg BIDWMEALS PO Last administered on 02/15/18 16:05; Start 02/10/18 at 17:00 Docusate Sodium (Colace) 100 mg BID PO Last administered on 02/15/18 19:56; Start 02/10/18 at 21:00 EZETIMIBE (Zetia) 10 mg DAILY PO Last administered on 02/15/18 08:05; Start 02/11/18 at 09:00 Famotidine (Pepcid) 20 mg DAILY PO Last administered on 02/15/18 08:06; Start 02/11/18 at 09:00 Fluoxetine HCl (PROzac) 40 mg DAILY PO ; Start 02/11/18 at 09:00; Stop 02/11/18 at 09:00; Status DC Furosemide (Lasix) 40 mg DAILY PO Last administered on 02/15/18 08:05; Start at 09:00 Isosorbide Mononitrate (Imdur) 60 mg DAILY PO Last administered on 02/15/18 08: 05; Start 02/11/18 at 09:00 Levetiracetam (Keppra) 500 mg BID PO Last administered on 02/15/18 19:56; Start 02/10/18 at 21:00 Non-Formulary Medication (Melatonin ) 20 mg QHS PO ; Start 02/10/18 at 21:00; Stop 02/10/18 at 21:00; Status DC Pantoprazole Sodium (Protonix) 40 mg DAILYAC PO Last administered on 02/15/18 08:06; Start 02/11/18 at 07:30 Ranolazine (Ranexa) 1,000 mg BID PO Last administered on 02/15/18at 19:59; Start 02/10/18 at 21:00 Alprazolam (Xanax) 0.5 mg PRN Q2HR PRN PO ANXIETY / AGITATION Last administered on 02/10/18 16:58; Start 02/10/18 at 16:55; Stop 02/13/18 at 19:23; Status DC Duloxetine HCl (Cymbalta) 30 mg DAILY PO Last administered on 02/12/18at 08:01; Start 02/11/18 at 09:00; Stop 02/12/18 at 23:35; Status DC Trazodone HCl (Desyrel) 50 mg PRN QHS PRN PO insomnia Last administered on 02/15at 20:04; Start 02/10/18 at 20:00 Furosemide (Lasix) 20 mg PRN DAILY PRN PO WITH SUPPER FOR EDEMA; Start 02/12/18 at 18:15 Duloxetine HCl (Cymbalta) 60 mg DAILY PO Last administered on 02/15/18at 08:06; Start 02/13/18 at 09:00 Alprazolam (Xanax) 1.5 mg TID PRN PO for sleep ; Start 02/13/18 at 19:30; Stop 02/14/18 at 03:13; Status DC Alprazolam (Xanax) 0.5 mg PRN TID PRN PO ANXIETY / AGITATION Last administered on 02/15/18 13:19; Start 02/14/18 at 03:15 Vitamin D (Vitamin D3) 50,000 unit WEEKLY PO Last administered on 02/15/18 17: 29; Start 02/15/18 at 17:00 Mirtazapine (Remeron) 7.5 mg QHS PO Last administered on 02/15/18at 19:56; Start 02/15/18 at 21:00 Active Scripts Active Reported Ambien (Zolpidem Tartrate) 5 Mg Tablet 5 Mg PO PRN QHS PRN Ranexa (Ranolazine) 1,000 Mg Tab.er.12h 1,000 Mg PO BID Pantoprazole Sodium 40 Mg Tablet.dr 40 Mg PO DAILY NITROGLYCERIN SubLingual (Nitroglycerin) 0.4 Mg Tab.subl 0.4 Mg SL PRN Q5MIN PRN Stool Softener Tablet (Sennosides/Docusate Sodium) 1 Each Tablet 1 Each PO PRN DAILY PRN Melatonin 3 Mg Tablet 20 Mg PO QHS Levetiracetam 500 Mg Tablet 500 Mg PO BID Isosorbide Mononitrate Er (Isosorbide Mononitrate) 60 Mg Tab.er.24h 60 Mg PO DAILY Furosemide 20 Mg Tablet 20 Mg PO PRN QEVNG PRN Furosemide 40 Mg Tablet 40 Mg PO DAILY Prozac (Fluoxetine Hcl) 40 Mg Capsule 40 Mg PO DAILY Famotidine 20 Mg Tablet 20 Mg PO DAILY Zetia (Ezetimibe) 10 Mg Tablet 10 Mg PO DAILY Docusate Sodium 100 Mg Capsule 100 Mg PO BID Clopidogrel (Clopidogrel Bisulfate) 75 Mg Tablet 75 Mg PO DAILY PRN Carvedilol 25 Mg Tablet 25 Mg PO BIDWMEALS Atorvastatin Calcium 80 Mg Tablet 80 Mg PO DAILY Aspirin 81 Mg Tab.chew 81 Mg PO DAILY Amlodipine Besylate 10 Mg Tablet 10 Mg PO DAILY Alprazolam 1 Mg Tablet 1.5 Mg PO PRN QHS PRN I have reviewed the current psychotropics carefully including drug interactions. Risk benefit ratio favors no change other than as noted in my dictated progress note. Diagnosis: Problems: (1) Altered mental status, unspecified (2) Major depressive disorder, recurrent episode (3) Anxiety disorder MARIA ESTHER FREEDMAN MD Feb 15, 2018 22:57
--- NOTE | 2018-02-16 01:53 | PN ---
DATE: 02/14/2018 This late entry for 02/14/2018 covers elements not covered in my initial note. SUBJECTIVE: I met with the patient in the evening. The patient slept 7 hours previous night. She has been more animated, interactive, coming to the day room, less withdrawn to her room. She slept 7 hours previous night. REVIEW OF SYSTEMS: No CV, , pulmonary, eye, ENT system symptoms on review. MENTAL STATUS EXAM: Oriented reasonably. Speech is coherent, pleasant, verbal. Abstraction fair, computation reasonable, language function intact, attention span fair. Mood and affect is improved. No suicidal ideation. LABORATORY DATA: Reviewed. IMPRESSION: Major depressive disorder, recurrent; anxiety disorder, unspecified. Rest unchanged. PLAN: No change from initial note. MARIA ESTHER FREEDMAN MD DR: PHILIPPE/amie JOB#: [id number] / [id number]
[2018-02-16 05:55] VITALS: BP 124/68
[2018-02-16] MEDS: amLODIPine BESYLATE 10 MG TABLET PO SCH (08:35)
[2018-02-16] MEDS: ISOSORBIDE MONONITRATE ER 30 MG TAB.ER.24H PO SCH (08:35)
[2018-02-16] MEDS: DOCUSATE SODIUM 100 MG CAPSULE PO SCH ×2 (08:35→20:11)
[2018-02-16] MEDS: PANTOPRAZOLE 40 MG TABLET. PO SCH (08:35)
[2018-02-16] MEDS: CLOPIDOGREL BISULFATE 75 MG TABLET PO SCH (08:36)
[2018-02-16] MEDS: levETIRAcetam 500 MG TABLET PO SCH ×2 (08:36→20:11)
[2018-02-16] MEDS: FAMOTIDINE 20 MG TABLET PO SCH (08:36)
[2018-02-16] MEDS: DULoxetine HCL 60 MG CAPSULE.DR PO SCH (08:36)
[2018-02-16] MEDS: EZETIMIBE 10 MG TABLET PO SCH (08:36)
[2018-02-16] MEDS: ATORVASTATIN CALCIUM 20 MG TABLET PO SCH (08:36)
[2018-02-16] MEDS: FUROSEMIDE 40 MG TABLET PO SCH (08:36)
[2018-02-16] MEDS: ASPIRIN 81 MG TAB.CHEW PO SCH (08:36)
[2018-02-16] MEDS: RANOLAZINE 500 MG TAB.ER.12H PO SCH ×2 (08:38→20:11)
[2018-02-16] MEDS: CARVEDILOL 12.5 MG TABLET PO SCH ×2 (09:04→17:11)
--- NOTE | 2018-02-16 12:42 | PN ---
DATE: 02/15/2018 PSYCHIATRIC PROGRESS NOTE This is a late entry 02/15/2018, covers elements not covered in my initial note. SUBJECTIVE: I met with the patient in the evening at length in her room. Per nursing report, the patient slept 5-1/2 hours previous night. She did well the previous night reasonably well during the day, but subjectively the patient states she woke up at 1:00 a.m. and wants something definitely more than the trazodone to help with her insomnia. She did take Tylenol and Xanax earlier in the day was calmer. She states she has been somewhat anxious at times, especially with the noise around her on the unit. REVIEW OF SYSTEMS: No CV, , pulmonary, eye system symptoms on review. She does complain of some pedal edema. MENTAL STATUS EXAM: Reasonably oriented. Speech is coherent, abstraction fair, computation impaired, language function intact, attention span short. Mood and affect still somewhat anxious, dysphoric, but improved. No suicidal ideation. LABORATORY DATA: Reviewed. IMPRESSION: Major depressive disorder, recurrent, in partial remission; anxiety disorder, unspecified. Rest unchanged. PLAN: Start Remeron 7.5 mg p.o. at bedtime for insomnia. Continue rest unchanged per initial note. May adjust Cymbalta further as clinically indicated. MAN Tavon FREEDMAN MD DR: PHILIPPE/amie JOB#: [id number] / [id number]
[2018-02-16 16:21] VITALS: BP 123/73
[2018-02-16] MEDS: MIRTAZAPINE 7.5 MG TABLET. PO SCH (20:11)
[2018-02-16] MEDS: traZODone 50 MG TABLET. PO PRN (20:15)
--- NOTE | 2018-02-16 22:47 | PDOC ---
Exam Note: Allan Note: Please also refer to the separate dictated note~for this date of service dictated separately.~Patient seen individually. Discussed the patient with Nursing staff reviewed the chart.~Reviewed interim history and current functioning. Reviewed vital signs,~Labs/ Radiology~and current medications noted below. Continue current treatment with the changes noted in the dictated addendum note Assessment: Vital Signs: Vital Signs Date Time Temp Pulse Resp B/P (MAP) Pulse Ox O2 Delivery O2 Flow Rate FiO2 02/16/18 20:11 71 123/73 02/16/18 16:21 97.8 18 99 02/13/18 06:03 Room Air I&O Intake and Output 02/16/18 07:01 Intake Total 1200 ml Balance 1200 ml Intake Oral 1200 ml Labs: Laboratory Tests Test 02/16/18 08:05 Glucose (Fingerstick) 90 mg/dL (70-99) Current Medications: Meds: Current Medications Acetaminophen (Tylenol) 650 mg PRN Q6HRS PRN PO PAIN / TEMP Last administered on 02/15/18at 13:19; Start 02/10/18 at 13:45 Multi-Ingredient Ointment (Analgesic [place]) 1 sha PRN QID PRN TP MUSCLE PAIN; Start 02/10/18 at 13:45 Al Hydroxide/Mg Hydroxide (Mylanta Plus Xs) 15 ml PRN AFTMEALHC PRN PO DYSPEPSIA; Start 02/10/18 at 13:45 Magnesium Hydroxide (Milk Of Magnesia) 2,400 mg PRN QHS PRN PO CONSTIPATION; Start 02/10/18 at 13:45 Clopidogrel Bisulfate (Plavix) 75 mg DAILY PO Last administered on 02/16/18at 08: 36; Start 02/11/18 at 09:00 Furosemide (Lasix) 20 mg PRN QEVNG PRN PO edema Last administered on 02/13/18at 18:39; Start 02/10/18 at 14:30 Nitroglycerin (Nitrostat) 0.4 mg PRN Q5MIN PRN SL CHEST PAIN; Start 02/10/18 at 14:30 Senna/Docusate Sodium (Senna Plus) 1 tab PRN DAILY PRN PO stool softener ; Start 02/10/18 at 14:30 Zolpidem Tartrate (Ambien) 5 mg PRN QHS PRN PO insomnia Last administered on 19:39; Start 02/10/18 at 14:30; Stop 02/13/18 at 19:23; Status DC Alprazolam (Xanax) 1.5 mg PRN QHS PRN PO for sleep Last administered on 19:39; Start 02/10/18 at 14:30; Stop 02/13/18 at 19:23; Status DC Amlodipine Besylate (Norvasc) 10 mg DAILY PO Last administered on 02/16/18 08: 35; Start 02/11/18 at 09:00 Aspirin (Children'S Aspirin) 81 mg DAILYWBKFT PO Last administered on 02/16/18 08:36; Start 02/11/18 at 08:00 Atorvastatin Calcium (Lipitor) 80 mg DAILY PO Last administered on 02/16/18 08: 36; Start 02/11/18 at 09:00 Carvedilol (Coreg) 25 mg BIDWMEALS PO Last administered on 02/16/18 17:11; Start 02/10/18 at 17:00 Docusate Sodium (Colace) 100 mg BID PO Last administered on 02/16/18 20:11; Start 02/10/18 at 21:00 EZETIMIBE (Zetia) 10 mg DAILY PO Last administered on 02/16/18 08:36; Start 02/11/18 at 09:00 Famotidine (Pepcid) 20 mg DAILY PO Last administered on 02/16/18 08:36; Start 02/11/18 at 09:00 Fluoxetine HCl (PROzac) 40 mg DAILY PO ; Start 02/11/18 at 09:00; Stop 02/11/18 at 09:00; Status DC Furosemide (Lasix) 40 mg DAILY PO Last administered on 02/16/18 08:36; Start at 09:00 Isosorbide Mononitrate (Imdur) 60 mg DAILY PO Last administered on 02/16/18 08: 35; Start 02/11/18 at 09:00 Levetiracetam (Keppra) 500 mg BID PO Last administered on 02/16/18 20:11; Start 02/10/18 at 21:00 Non-Formulary Medication (Melatonin ) 20 mg QHS PO ; Start 02/10/18 at 21:00; Stop 02/10/18 at 21:00; Status DC Pantoprazole Sodium (Protonix) 40 mg DAILYAC PO Last administered on 02/16/18at 08:35; Start 02/11/18 at 07:30 Ranolazine (Ranexa) 1,000 mg BID PO Last administered on 02/16/18at 20:11; Start 02/10/18 at 21:00 Alprazolam (Xanax) 0.5 mg PRN Q2HR PRN PO ANXIETY / AGITATION Last administered on 02/10/18 16:58; Start 02/10/18 at 16:55; Stop 02/13/18 at 19:23; Status DC Duloxetine HCl (Cymbalta) 30 mg DAILY PO Last administered on 02/12/18at 08:01; Start 02/11/18 at 09:00; Stop 02/12/18 at 23:35; Status DC Trazodone HCl (Desyrel) 50 mg PRN QHS PRN PO insomnia Last administered on 02/16at 20:15; Start 02/10/18 at 20:00 Furosemide (Lasix) 20 mg PRN DAILY PRN PO WITH SUPPER FOR EDEMA; Start 02/12/18 at 18:15 Duloxetine HCl (Cymbalta) 60 mg DAILY PO Last administered on 02/16/18at 08:36; Start 02/13/18 at 09:00 Alprazolam (Xanax) 1.5 mg TID PRN PO for sleep ; Start 02/13/18 at 19:30; Stop 02/14/18 at 03:13; Status DC Alprazolam (Xanax) 0.5 mg PRN TID PRN PO ANXIETY / AGITATION Last administered on 02/15/18at 13:19; Start 02/14/18 at 03:15 Vitamin D (Vitamin D3) 50,000 unit WEEKLY PO Last administered on 02/15/18at 17: 29; Start 02/15/18 at 17:00 Mirtazapine (Remeron) 7.5 mg QHS PO Last administered on 02/16/18at 20:11; Start 02/15/18 at 21:00 Active Scripts Active Reported Ambien (Zolpidem Tartrate) 5 Mg Tablet 5 Mg PO PRN QHS PRN Ranexa (Ranolazine) 1,000 Mg Tab.er.12h 1,000 Mg PO BID Pantoprazole Sodium 40 Mg Tablet.dr 40 Mg PO DAILY NITROGLYCERIN SubLingual (Nitroglycerin) 0.4 Mg Tab.subl 0.4 Mg SL PRN Q5MIN PRN Stool Softener Tablet (Sennosides/Docusate Sodium) 1 Each Tablet 1 Each PO PRN DAILY PRN Melatonin 3 Mg Tablet 20 Mg PO QHS Levetiracetam 500 Mg Tablet 500 Mg PO BID Isosorbide Mononitrate Er (Isosorbide Mononitrate) 60 Mg Tab.er.24h 60 Mg PO DAILY Furosemide 20 Mg Tablet 20 Mg PO PRN QEVNG PRN Furosemide 40 Mg Tablet 40 Mg PO DAILY Prozac (Fluoxetine Hcl) 40 Mg Capsule 40 Mg PO DAILY Famotidine 20 Mg Tablet 20 Mg PO DAILY Zetia (Ezetimibe) 10 Mg Tablet 10 Mg PO DAILY Docusate Sodium 100 Mg Capsule 100 Mg PO BID Clopidogrel (Clopidogrel Bisulfate) 75 Mg Tablet 75 Mg PO DAILY PRN Carvedilol 25 Mg Tablet 25 Mg PO BIDWMEALS Atorvastatin Calcium 80 Mg Tablet 80 Mg PO DAILY Aspirin 81 Mg Tab.chew 81 Mg PO DAILY Amlodipine Besylate 10 Mg Tablet 10 Mg PO DAILY Alprazolam 1 Mg Tablet 1.5 Mg PO PRN QHS PRN I have reviewed the current psychotropics carefully including drug interactions. Risk benefit ratio favors no change other than as noted in my dictated progress note. Diagnosis: Problems: (1) Altered mental status, unspecified (2) Major depressive disorder, recurrent episode (3) Anxiety disorder MARIA ESTHER FREEDMAN MD Feb 16, 2018 22:47
[2018-02-17 05:51] VITALS: BP 109/59
[2018-02-17] MEDS: FUROSEMIDE 40 MG TABLET PO SCH (07:56)
[2018-02-17] MEDS: levETIRAcetam 500 MG TABLET PO SCH ×2 (07:56→19:28)
[2018-02-17] MEDS: CLOPIDOGREL BISULFATE 75 MG TABLET PO SCH (07:56)
[2018-02-17] MEDS: ISOSORBIDE MONONITRATE ER 30 MG TAB.ER.24H PO SCH (07:57)
[2018-02-17] MEDS: FAMOTIDINE 20 MG TABLET PO SCH (07:58)
[2018-02-17] MEDS: ATORVASTATIN CALCIUM 20 MG TABLET PO SCH (07:58)
[2018-02-17] MEDS: DULoxetine HCL 60 MG CAPSULE.DR PO SCH (07:58)
[2018-02-17] MEDS: PANTOPRAZOLE 40 MG TABLET. PO SCH (07:58)
[2018-02-17] MEDS: DOCUSATE SODIUM 100 MG CAPSULE PO SCH ×2 (07:59→19:28)
[2018-02-17] MEDS: EZETIMIBE 10 MG TABLET PO SCH (07:59)
[2018-02-17] MEDS: ASPIRIN 81 MG TAB.CHEW PO SCH (08:00)
[2018-02-17] MEDS: CARVEDILOL 12.5 MG TABLET PO SCH ×2 (08:00→17:47)
[2018-02-17] MEDS: amLODIPine BESYLATE 10 MG TABLET PO SCH (08:00)
[2018-02-17] MEDS: RANOLAZINE 500 MG TAB.ER.12H PO SCH ×2 (08:02→19:29)
[2018-02-17] MEDS: ALPRAZolam 0.5 MG TABLET PO PRN (12:06)
[2018-02-17 15:56] VITALS: BP 134/76
[2018-02-17] MEDS: traZODone 50 MG TABLET. PO PRN ×2 (19:28→22:52)
[2018-02-17] MEDS: MIRTAZAPINE 7.5 MG TABLET. PO SCH (19:28)
--- NOTE | 2018-02-17 20:01 | PN ---
DATE: 02/16/2018 This late entry for 02/16/2018 covers elements not covered in my initial note. SUBJECTIVE: I met with the patient in the evening individually at some length and staffed at a treatment team meeting with the entire team and the patient attended this conference with the entire team. The patient slept 6-3/4 hours previous night. Appetite 95%. She has been pleasant, compliant with medications. She denies suicidal ideation and subjectively feels her mood is better. We have addressed activities for her to get involved with post-discharge and outpatient followup at the [facility] in [place] and reviewed her past history and current medications. REVIEW OF SYSTEMS: No CV, , pulmonary, eye, ENT system symptoms on review. Reliability fair. MENTAL STATUS EXAM: Oriented to herself, situation. She is reasonably oriented. Speech is coherent, pleasant, abstraction fair, computation impaired, language function intact, attention span short. Mood and affect is improved, less depressed. Again, no suicidal ideation. LABORATORY DATA: Reviewed. IMPRESSION: Major depressive disorder with suicidal ideation in partial remission; anxiety disorder, unspecified. Rest unchanged. PLAN: Continue current psychotropics, Cymbalta 60 mg a day, trazodone, Remeron. She is on Keppra for her seizure disorder, Xanax p.r.n. and we stopped the Ambien. MARIA ESTHER FREEDMAN MD DR: PHILIPPE/amie JOB#: [id number] / [id number]
--- NOTE | 2018-02-17 22:20 | PN ---
DATE: 02/17/2018 This note covers elements not covered in my initial note of 02/17/2018. SUBJECTIVE: I met with the patient in the afternoon. I met with her in her room. She slept 7-1/4 hours previous night, received Xanax p.r.n. at 11:00 p.m. States she had the best night's sleep at night since she started on Remeron. REVIEW OF SYSTEMS: No CV, , pulmonary, eye, ENT system symptoms on review. MENTAL STATUS EXAM: Reasonably oriented. Speech is coherent, abstraction fair, computation reasonable, language function intact, attention span short. Mood and affect is improved. No suicidal ideation. LABORATORY DATA: Reviewed. IMPRESSION: Major depressive disorder, recurrent, in partial remission; anxiety disorder, unspecified. Rest unchanged. PLAN: No change from initial note. MAN Tavon FREEDMAN MD DR: PHILIPPE/amie JOB#: [id number] / [id number]
--- NOTE | 2018-02-17 22:55 | PDOC ---
Exam Note: Allan Note: Please also refer to the separate dictated note~for this date of service dictated separately.~Patient seen individually. Discussed the patient with Nursing staff reviewed the chart.~Reviewed interim history and current functioning. Reviewed vital signs,~Labs/ Radiology~and current medications noted below. Continue current treatment with the changes noted in the dictated addendum note Assessment: Vital Signs: Vital Signs Date Time Temp Pulse Resp B/P (MAP) Pulse Ox O2 Delivery O2 Flow Rate FiO2 02/17/18 19:29 74 134/76 02/17/18 15:56 98.1 18 97 Room Air I&O Intake and Output 02/17/18 07:01 Intake Total 1320 ml Balance 1320 ml Intake Oral 1320 ml # Voids 1 Labs: Laboratory Tests Test 02/17/18 07:56 Glucose (Fingerstick) 92 mg/dL (70-99) Current Medications: Meds: Current Medications Acetaminophen (Tylenol) 650 mg PRN Q6HRS PRN PO PAIN / TEMP Last administered on 02/15/18at 13:19; Start 02/10/18 at 13:45 Multi-Ingredient Ointment (Analgesic [place]) 1 sha PRN QID PRN TP MUSCLE PAIN; Start 02/10/18 at 13:45 Al Hydroxide/Mg Hydroxide (Mylanta Plus Xs) 15 ml PRN AFTMEALHC PRN PO DYSPEPSIA; Start 02/10/18 at 13:45 Magnesium Hydroxide (Milk Of Magnesia) 2,400 mg PRN QHS PRN PO CONSTIPATION; Start 02/10/18 at 13:45 Clopidogrel Bisulfate (Plavix) 75 mg DAILY PO Last administered on 02/17/18at 07 :56; Start 02/11/18 at 09:00 Furosemide (Lasix) 20 mg PRN QEVNG PRN PO edema Last administered on 02/13/18at 18:39; Start 02/10/18 at 14:30 Nitroglycerin (Nitrostat) 0.4 mg PRN Q5MIN PRN SL CHEST PAIN; Start 02/10/18 at 14:30 Senna/Docusate Sodium (Senna Plus) 1 tab PRN DAILY PRN PO stool softener ; Start 02/10/18 at 14:30 Zolpidem Tartrate (Ambien) 5 mg PRN QHS PRN PO insomnia Last administered on 19:39; Start 02/10/18 at 14:30; Stop 02/13/18 at 19:23; Status DC Alprazolam (Xanax) 1.5 mg PRN QHS PRN PO for sleep Last administered on 19:39; Start 02/10/18 at 14:30; Stop 02/13/18 at 19:23; Status DC Amlodipine Besylate (Norvasc) 10 mg DAILY PO Last administered on 02/17/18 08: 00; Start 02/11/18 at 09:00 Aspirin (Children'S Aspirin) 81 mg DAILYWBKFT PO Last administered on 08:00; Start 02/11/18 at 08:00 Atorvastatin Calcium (Lipitor) 80 mg DAILY PO Last administered on 02/17/18 07 :58; Start 02/11/18 at 09:00 Carvedilol (Coreg) 25 mg BIDWMEALS PO Last administered on 02/17/18 17:47; Start 02/10/18 at 17:00 Docusate Sodium (Colace) 100 mg BID PO Last administered on 02/17/18 19:28; Start 02/10/18 at 21:00 EZETIMIBE (Zetia) 10 mg DAILY PO Last administered on 02/17/18 07:59; Start at 09:00 Famotidine (Pepcid) 20 mg DAILY PO Last administered on 02/17/18 07:58; Start 02/11/18 at 09:00 Fluoxetine HCl (PROzac) 40 mg DAILY PO ; Start 02/11/18 at 09:00; Stop 02/11/18 at 09:00; Status DC Furosemide (Lasix) 40 mg DAILY PO Last administered on 02/17/18 07:56; Start 02/11/18 at 09:00 Isosorbide Mononitrate (Imdur) 60 mg DAILY PO Last administered on 02/17/18 07 :57; Start 02/11/18 at 09:00 Levetiracetam (Keppra) 500 mg BID PO Last administered on 02/17/18 19:28; Start 02/10/18 at 21:00 Non-Formulary Medication (Melatonin ) 20 mg QHS PO ; Start 02/10/18 at 21:00; Stop 02/10/18 at 21:00; Status DC Pantoprazole Sodium (Protonix) 40 mg DAILYAC PO Last administered on 02/17/18at 07:58; Start 02/11/18 at 07:30 Ranolazine (Ranexa) 1,000 mg BID PO Last administered on 02/17/18at 19:29; Start 02/10/18 at 21:00 Alprazolam (Xanax) 0.5 mg PRN Q2HR PRN PO ANXIETY / AGITATION Last administered on 02/10/18at 16:58; Start 02/10/18 at 16:55; Stop 02/13/18 at 19:23; Status DC Duloxetine HCl (Cymbalta) 30 mg DAILY PO Last administered on 02/12/18at 08:01; Start 02/11/18 at 09:00; Stop 02/12/18 at 23:35; Status DC Trazodone HCl (Desyrel) 50 mg PRN QHS PRN PO insomnia Last administered on 11/26at 22:52; Start 02/10/18 at 20:00 Furosemide (Lasix) 20 mg PRN DAILY PRN PO WITH SUPPER FOR EDEMA; Start 02/12/18 at 18:15 Duloxetine HCl (Cymbalta) 60 mg DAILY PO Last administered on 02/17/18at 07:58; Start 02/13/18 at 09:00 Alprazolam (Xanax) 1.5 mg TID PRN PO for sleep ; Start 02/13/18 at 19:30; Stop 02/14/18 at 03:13; Status DC Alprazolam (Xanax) 0.5 mg PRN TID PRN PO ANXIETY / AGITATION Last administered on 02/17/18at 12:06; Start 02/14/18 at 03:15 Vitamin D (Vitamin D3) 50,000 unit WEEKLY PO Last administered on 02/15/18at 17: 29; Start 02/15/18 at 17:00 Mirtazapine (Remeron) 7.5 mg QHS PO Last administered on 02/17/18at 19:28; Start 02/15/18 at 21:00 Active Scripts Active Reported Ambien (Zolpidem Tartrate) 5 Mg Tablet 5 Mg PO PRN QHS PRN Ranexa (Ranolazine) 1,000 Mg Tab.er.12h 1,000 Mg PO BID Pantoprazole Sodium 40 Mg Tablet.dr 40 Mg PO DAILY NITROGLYCERIN SubLingual (Nitroglycerin) 0.4 Mg Tab.subl 0.4 Mg SL PRN Q5MIN PRN Stool Softener Tablet (Sennosides/Docusate Sodium) 1 Each Tablet 1 Each PO PRN DAILY PRN Melatonin 3 Mg Tablet 20 Mg PO QHS Levetiracetam 500 Mg Tablet 500 Mg PO BID Isosorbide Mononitrate Er (Isosorbide Mononitrate) 60 Mg Tab.er.24h 60 Mg PO DAILY Furosemide 20 Mg Tablet 20 Mg PO PRN QEVNG PRN Furosemide 40 Mg Tablet 40 Mg PO DAILY Prozac (Fluoxetine Hcl) 40 Mg Capsule 40 Mg PO DAILY Famotidine 20 Mg Tablet 20 Mg PO DAILY Zetia (Ezetimibe) 10 Mg Tablet 10 Mg PO DAILY Docusate Sodium 100 Mg Capsule 100 Mg PO BID Clopidogrel (Clopidogrel Bisulfate) 75 Mg Tablet 75 Mg PO DAILY PRN Carvedilol 25 Mg Tablet 25 Mg PO BIDWMEALS Atorvastatin Calcium 80 Mg Tablet 80 Mg PO DAILY Aspirin 81 Mg Tab.chew 81 Mg PO DAILY Amlodipine Besylate 10 Mg Tablet 10 Mg PO DAILY Alprazolam 1 Mg Tablet 1.5 Mg PO PRN QHS PRN I have reviewed the current psychotropics carefully including drug interactions. Risk benefit ratio favors no change other than as noted in my dictated progress note. Diagnosis: Problems: (1) Altered mental status, unspecified (2) Major depressive disorder, recurrent episode (3) Anxiety disorder MARIA ESTHER FREEDMAN MD Feb 17, 2018 22:55
[2018-02-18] MEDS ORDERED: ALPR0.5T6 PO (00:31)
[2018-02-18] MEDS ORDERED: ACET325T9 PO (00:31)
[2018-02-18] MEDS ORDERED: CHOL500021 PO (00:32)
[2018-02-18] MEDS ORDERED: DULO60CA6 PO (00:34)
[2018-02-18] MEDS ORDERED: MAG355OR11 PO (00:37)
[2018-02-18] MEDS ORDERED: MAGN2400 PO (00:37)
[2018-02-18] MEDS ORDERED: METH29OI TP (00:37)
[2018-02-18] MEDS ORDERED: MIRT7.5T8 PO (00:38)
[2018-02-18] MEDS ORDERED: TRAZ-85 PO (00:39)
[2018-02-18 05:35] VITALS: BP 107/57
[2018-02-18] MEDS: DOCUSATE SODIUM 100 MG CAPSULE PO SCH (07:56)
[2018-02-18] MEDS: CLOPIDOGREL BISULFATE 75 MG TABLET PO SCH (07:56)
[2018-02-18] MEDS: DULoxetine HCL 60 MG CAPSULE.DR PO SCH (07:56)
[2018-02-18] MEDS: FAMOTIDINE 20 MG TABLET PO SCH (07:56)
[2018-02-18] MEDS: levETIRAcetam 500 MG TABLET PO SCH (07:56)
[2018-02-18] MEDS: EZETIMIBE 10 MG TABLET PO SCH (07:57)
[2018-02-18] MEDS: ASPIRIN 81 MG TAB.CHEW PO SCH (07:57)
[2018-02-18] MEDS: FUROSEMIDE 40 MG TABLET PO SCH (07:57)
[2018-02-18] MEDS: PANTOPRAZOLE 40 MG TABLET. PO SCH (07:57)
[2018-02-18] MEDS: ATORVASTATIN CALCIUM 20 MG TABLET PO SCH (07:58)
[2018-02-18 08:09] VITALS: BP 137/56
[2018-02-18] MEDS: ISOSORBIDE MONONITRATE ER 30 MG TAB.ER.24H PO SCH (08:10)
[2018-02-18 08:11] VITALS: BP 137/56
[2018-02-18] MEDS: amLODIPine BESYLATE 10 MG TABLET PO SCH (08:11)
[2018-02-18] MEDS: CARVEDILOL 12.5 MG TABLET PO SCH (08:11)
[2018-02-18] MEDS: RANOLAZINE 500 MG TAB.ER.12H PO SCH (08:11)
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
== END 2018-02-18 10:45 | disposition home or self-care (01) | DRG 885 ==
LOC: GEROPSY 12:25
PROVIDERS: ADMIT Psychiatry & Neurology Psychiatry; ATTEND Psychiatry & Neurology Psychiatry
DX: F33.3 Major depressive disorder, recurrent, severe with psychotic symptoms (principal); I13.0 Hypertensive heart and chronic kidney disease with heart failure and stage 1 through stage 4 chronic kidney disease, or unspecified chronic kidney disease; F43.10 Post-traumatic stress disorder, unspecified; F41.0 Panic disorder [episodic paroxysmal anxiety]; F33.41 Major depressive disorder, recurrent, in partial remission; F63.9 Impulse disorder, unspecified; Z86.73 Personal history of transient ischemic attack (TIA), and cerebral infarction without residual deficits; E11.22 Type 2 diabetes mellitus with diabetic chronic kidney disease; E11.51 Type 2 diabetes mellitus with diabetic peripheral angiopathy without gangrene; I70.1 Atherosclerosis of renal artery; I50.9 Heart failure, unspecified; I25.10 Atherosclerotic heart disease of native coronary artery without angina pectoris; N18.9 Chronic kidney disease, unspecified; E78.5 Hyperlipidemia, unspecified; G43.909 Migraine, unspecified, not intractable, without status migrainosus; G40.909 Epilepsy, unspecified, not intractable, without status epilepticus; G47.00 Insomnia, unspecified; Z98.1 Arthrodesis status; Z95.1 Presence of aortocoronary bypass graft
CPT/HCPCS: 36415; 80053; 80061; 82306; 82607; 82947; 83036; 83540; 83550; 83735; 84436; 84443; 84480; 85025; 86592